=== PATIENT | female | born 1950 | race Caucasian/White ===

== ENCOUNTER 2017-09-19 13:59 | Emergency (ER) | payer MEDICARE, BC ==
[2017-09-19 14:09] VITALS: BP 116/76
--- NOTE | 2017-09-19 14:47 | XRAY Report ---
Procedure Date: 09/19/2017 Accession Number: [id number] / [id number] Procedure: XR - Ankle 3 View RT CPT Code: FULL RESULT: EXAM: RIGHT ANKLE RADIOGRAPHY EXAM DATE: 09/19/2017 02:28 PM. CLINICAL HISTORY: Right ankle pain post slip and fall. COMPARISON: None. TECHNIQUE: 3 views. FINDINGS: Bones: Comminuted mildly displaced distal fibular fracture with fracture lines extending to the level of the tibial plafond. Plantar calcaneal spur. Joints: Normal alignment. The ankle mortise is symmetric. No tibiotalar joint effusion. Soft Tissues: Anterolateral soft tissue swelling. IMPRESSION: Comminuted mildly displaced Nguyen type B distal fibular fracture. RADIA
--- NOTE | 2017-09-19 15:06 | ED Physician Documentation ---
PD HPI LOWER EXT INJURY - Stated complaint Stated Complaint: GLF/R ANKLE INJ - Chief complaint Chief Complaint: Ext Problem - History obtained from History obtained from: Patient, Family - History of Present Illness PD HPI LOW EXT INJURY LOCATION: Right, Lower leg Type of injury: Fall, Twist Where injury occurred: Home Timing - onset: Last night Timing - duration: Days (1) Timing - details: Abrupt onset, Still present Improved by: Rest, Ice, Immobilization Worsened by: Moving, Palpating Associated symptoms: Swelling. No: Weakness, Numbness Similar symptoms before: Has not had sx before Recently seen: Not recently seen - Additional information Additional information: 67-year-old female with a history of coronary artery disease and equilibrium problems was walking on her porch last night and slipped fell and heard a loud crack she has pain in her right leg just above the ankle on the calf and she was able to sleep last night with certain positioning and was not able to bear weight. This morning she is able to bear weight and walk a few steps. Review of Systems Constitutional: denies: Fever Eyes: denies: Decreased vision Nose: denies: Congestion Respiratory: denies: Cough GI: denies: Vomiting Skin: denies: Rash Musculoskeletal: reports: Joint pain, Joint swelling, Pain with weight bearing. denies: Neck pain, Back pain Neurologic: denies: Generalized weakness, Focal weakness, Numbness PD PAST MEDICAL HISTORY - Present Medications Home Medications: Ambulatory Orders Medication Instructions Recorded Confirmed Aspirin 81 mg PO 09/19/17 Atenolol/Chlorthalidone 1 each PO 09/19/17 [Atenolol-Chlorthal 50-25 Tb] Atorvastatin Calcium 09/19/17 FLUoxetine [PROzac] 40 mg PO DAILY 09/19/17 09/19/17 Levothyroxine Sodium [Synthroid] 100 mcg PO 09/19/17 Lisinopril 10 mg PO BID 09/19/17 09/19/17 Multivitamin [Multivitamins] 09/19/17 Omeprazole 20 mg PO 09/19/17 metFORMIN [Glucophage] 500 mg PO ONCE 09/19/17 09/19/17 - Allergies Allergies/Adverse Reactions: Allergies Allergy/AdvReac Type Severity Reaction Status Date / Time No Known Drug Allergies Allergy Verified 09/19/17 14:09 PD ED PE NORMAL - Vitals Vital signs reviewed: Yes (normal ) - General General: Alert and oriented X 3, No acute distress, Well developed/nourished - HEENT HEENT: Atraumatic, PERRL, EOMI - Neck Neck: Supple, no meningeal sign - Respiratory Respiratory: No respiratory distress - Derm Derm: Normal color, Warm and dry, No rash - Extremities Extremities: No deformity, No edema, Other (point tenderness to the right distal lateral calf and not deformity or swelling to the talofibular ligament or the anterior ankle. distal n/v is intact. ) - Neuro Eye Opening: Spontaneous Motor: Obeys Commands Verbal: Oriented GCS Score: 15 - Psych Psych: Normal mood, Normal affect Results - Vitals Vitals: Vital Signs - 24 hr 09/19/17 14:07 Temperature 36.5 C Heart Rate 55 L Respiratory 16 Rate Blood Pressure 116/76 O2 Saturation 97 Oxygen O2 Source Room air - Rads (name of study) right ankle Radiology: Prelim report reviewed (Impression: Comminuted mildly displaced Nguyen type B distal fibular fracture.), EMP read indepedently, See rad report PD MEDICAL DECISION MAKING - ED course Complexity details: reviewed results, re-evaluated patient, considered differential, d/w patient, d/w family ED course: 67-year-old female with a slip and fall on her deck has a spiral fracture of the distal fibula without lateral displacement of the talus. She is placed into a posterior splint and on crutches with follow-up with orthopedics. She is cautioned on the possibility of an unstable ankle and instructed not to bear weight until she is released by the orthopedic physicians. - Sepsis Event Vital Signs: Vital Signs - 24 hr 09/19/17 14:07 Temperature 36.5 C Heart Rate 55 L Respiratory 16 Rate Blood Pressure 116/76 O2 Saturation 97 Oxygen O2 Source Room air Departure - Departure Disposition: 01 Home, Self Care Clinical Impression: Fracture of distal fibula Qualifiers: Encounter type: initial encounter Fracture type: closed Fracture morphology: other fracture Laterality: right Qualified Code(s): S82.831A - Other fracture of upper and lower end of right fibula, initial encounter for closed fracture Condition: Stable Instructions: ED Fx Ankle Lateral Malleolus Follow-Up: Khushbu Henao PA [Primary Care Provider] - [facility] [Provider Group]
== END 2017-09-19 16:17 | disposition home or self-care (01) ==
LOC: ED 13:59
DX: S82.831A Other fracture of upper and lower end of right fibula, initial encounter for closed fracture (principal); W01.0XXA Fall on same level from slipping, tripping and stumbling without subsequent striking against object, initial encounter; Y93.01 Activity, walking, marching and hiking; Y92.008 Other place in unspecified non-institutional (private) residence as the place of occurrence of the external cause; Z79.82 Long term (current) use of aspirin
CPT/HCPCS: 29515; 99282; 99283

== ENCOUNTER 2017-09-21 07:32 | Day surgery (SDC) | payer MEDICARE, BC ==
[2017-09-21] MEDS ORDERED: LIDOCAINE-MPF 1% 30 ML VIAL ONE (07:34)
[2017-09-21] MEDS ORDERED: BUPIVACAINE 0.25%-EPI 1:200000 PF 30 ML VIAL ONE (07:34)
[2017-09-21] MEDS ORDERED: ceFAZolin 2 GM/50 ML 2 GM/50 ML BAG IV ONE (07:59)
[2017-09-21] MEDS ORDERED: DEXAMETHASONE 4 MG/ML VIAL ONE (08:19)
[2017-09-21] MEDS ORDERED: ROPIVACAINE 0.5% PF 20 ML AMPULE ONE (08:20)
[2017-09-21] MEDS ORDERED: LACTATED RINGERS 1,000 ML IV ONE ×2 (08:30→10:45)
[2017-09-21] MEDS ORDERED: fentaNYL 100 MCG/2 ML VIAL IVP ONE (10:27)
[2017-09-21] MEDS ORDERED: MIDAZOLAM 2 MG/2 ML VIAL IVP ONE (10:27)
[2017-09-21] MEDS ORDERED: PROPOFOL 200 MG/20 ML VIAL IVP ONE (10:27)
[2017-09-21] MEDS ORDERED: ONDANSETRON 4 MG/2 ML VIAL IVP ONE (10:27)
--- NOTE | 2017-09-21 12:00 | ANESTHESIA ---
Pre-Anesthesia VS, & Labs Vital Signs: Temp Pulse Resp BP Pulse Ox 36.5 C 16 129/72 100 09/21/17 11:48 09/21/17 11:48 09/21/17 11:48 09/21/17 11:48 Height 5 ft 2 in Weight (kg) 74 kg Body Mass Index 29.2 - NPO Other - Is Patient ?: No Home Medications and Allergies Home Medications: Ambulatory Orders Medication Instructions Recorded Confirmed Aspirin 81 mg PO DAILY 09/19/17 09/21/17 Atenolol/Chlorthalidone 1 each PO DAILY 09/19/17 09/21/17 [Atenolol-Chlorthal 50-25 Tb] Atorvastatin Calcium 80 mg PO DAILY 09/19/17 09/21/17 FLUoxetine [PROzac] 40 mg PO DAILY 09/19/17 09/21/17 Levothyroxine Sodium [Synthroid] 100 mcg PO DAILY 09/19/17 09/21/17 Lisinopril 10 mg PO BID 09/19/17 09/21/17 Multivitamin [Multivitamins] 1 tab PO DAILY 09/19/17 09/21/17 Allergies/Adverse Reactions: Allergies Allergy/AdvReac Type Severity Reaction Status Date / Time No Known Drug Allergies Allergy Verified 09/19/17 14:09 Anes History & Medical History - Anesthetic History Anesthesia Complications: reports: No previous complications Family history of Anesthesia Complications: Denies Family history of Malignant Hyperthermia: Denies - Airway/Dental Dental: Dentures full Upper, Dentures full Lower Neck Mobility: Normal Mallampati classification: II Thyromental Distance: 4-6 cm - Medical History Cardiovascular: reports: Hypertension, Coronary artery disease Pulmonary: reports: None Gastrointestinal: reports: GERD Urinary: reports: None Musculoskeletal: reports: Osteoarthritis, Chronic back pain Endocrine/Autoimmune: reports: HyPOthyroidism Smoking Status: Never smoker - Surgical History Cardiothoracic: Coronary stent Gynecologic: Dilation and currettage, Other Exam General: Alert, Oriented x3 Respiratory: Lungs clear, Normal breath sounds, No respiratory distress, No accessory muscle use Cardiovascular: Regular rate, Normal S1, Normal S2 Mental/Cognitive Status: Alert/Oriented X3, Normal for patient Cognitive Status: Within normal limits
--- NOTE | 2017-09-21 12:00 | XRAY Report ---
Procedure Date: 09/21/2017 Accession Number: [id number] / [id number] Procedure: XR - Ankle 3 View RT CPT Code: FULL RESULT: EXAM: Ankle 3 View RT DATE: 09/21/2017 11:39 AM CLINICAL HISTORY: post op COMPARISON: 09/19/2017. TECHNIQUE: 3 views. FINDINGS: Interval operative fixation of comminuted distal fibular fracture with a sideplate and 5 interlocking screws as well as a single syndesmotic screw without evidence of hardware failure. Evaluation of fine bone detail and soft tissues limited by the overlying cast material. No new fracture or dislocation is identified. IMPRESSION: Interval plate and screw fixation of the distal fibular fracture without evidence of failure. RADIA
--- NOTE | 2017-09-21 12:10 | ANESTHESIA ---
Pre-Anesthesia VS, & Labs Vital Signs: Temp Pulse Resp BP Pulse Ox 36.5 C 16 129/72 100 09/21/17 11:48 09/21/17 11:48 09/21/17 11:48 09/21/17 11:48 Height 5 ft 2 in Weight (kg) 74 kg Body Mass Index 29.2 Home Medications and Allergies Home Medications: Ambulatory Orders Medication Instructions Recorded Confirmed Aspirin 81 mg PO DAILY 09/19/17 09/21/17 Atenolol/Chlorthalidone 1 each PO DAILY 09/19/17 09/21/17 [Atenolol-Chlorthal 50-25 Tb] Atorvastatin Calcium 80 mg PO DAILY 09/19/17 09/21/17 FLUoxetine [PROzac] 40 mg PO DAILY 09/19/17 09/21/17 Levothyroxine Sodium [Synthroid] 100 mcg PO DAILY 09/19/17 09/21/17 Lisinopril 10 mg PO BID 09/19/17 09/21/17 Multivitamin [Multivitamins] 1 tab PO DAILY 09/19/17 09/21/17 Allergies/Adverse Reactions: Allergies Allergy/AdvReac Type Severity Reaction Status Date / Time No Known Drug Allergies Allergy Verified 09/19/17 14:09 Anes History & Medical History - Medical History Cardiovascular: reports: Hypertension, Coronary artery disease, Other Pulmonary: reports: None Gastrointestinal: reports: GERD Urinary: reports: None Musculoskeletal: reports: Osteoarthritis, Chronic back pain Endocrine/Autoimmune: reports: HyPOthyroidism Smoking Status: Never smoker - Surgical History Cardiothoracic: Coronary stent Gynecologic: Dilation and currettage, Other
[2017-09-21 12:17] VITALS: BP 115/72
--- NOTE | 2017-09-21 18:05 | OPERATIVE REPORT ---
DATE OF SERVICE: 09/21/2017 Physician: Ana Santiago MD PREOPERATIVE DIAGNOSIS: Right ankle comminuted lateral malleolus fracture with syndesmosis tear. POSTOPERATIVE DIAGNOSIS: Right ankle comminuted lateral malleolus fracture with syndesmosis tear. PROCEDURE PERFORMED: Right lateral malleolus open reduction internal fixation and placement of syndesmosis screw for syndesmosis repair. OPERATING SURGEON: Ana Santiago M.D. ANESTHESIA: General en bloc by Shai. INDICATIONS FOR SURGERY: Patient is a 67-year-old female who had misstepped off the back porch on 09/19/2017, presenting to the emergency room with a fractured unstable ankle, placed in a splint. On return to the office, the patient was noted to have severe comminution and shortening of her fibula and it was suspect that she may have syndesmosis disruption. Recommendation was that she undergo surgical repair. DESCRIPTION OF OPERATIVE PROCEDURE: Patient was taken to the operating room and placed supine. She had been given a popliteal block and then was given general anesthesia. A tourniquet was placed on her thigh. Her ankle and foot were sterilely prepped and draped in standard fashion. She was given IV antibiotics. After surgical timeout, the tourniquet was inflated to 300 mmHg. A longitudinal, 5-inch incision was made over the course of the lateral malleolus. This was carefully dissected down to bone. The patient's fracture was noted to be very comminuted representing about 5 fragments on initial exam. It was suspect that the syndesmosis was torn, but this was most apparent when reduction clamps were placed on the fragments and the syndesmosis was stressed. A Synthes recon locking plate was contoured and applied to the fibula, and this was a difficult reduction and difficult to hold all the fragments in acceptable position, but ultimately it was achieved with a combination of first placing standard screws in the fibula, followed by locking screws and then additionally adding a syndesmosis screw. This stabilized the ankle well and on small C-arm images appeared to show a very satisfactory reduction. The mortise was stable and the talus central in the mortise. The wound was irrigated thoroughly. The tourniquet was deflated. Bleeding was controlled, after which closure was undertaken with interrupted Vicryl closure of subcutaneous tissues and interrupted nylon closure of skin. Sterile dressings were applied. The patient was fitted into a well-molded stirrup splint that was well padded. The patient was taken to the recovery room in stable condition. ESTIMATED BLOOD LOSS: Minimal. COMPLICATIONS: None. SPONGE AND NEEDLE COUNTS: Correct. TD: 09/21/2017 13:11
== END 2017-09-21 07:33 | disposition home or self-care (01) ==
LOC: SDS 07:32
PROVIDERS: ATTEND Orthopaedic Surgery
PROC: 0QSJ04Z Reposition Right Fibula with Internal Fixation Device, Open Approach (ICD-10-PCS; principal; 2017-09-21 09:04)
DX: S82.61XA Displaced fracture of lateral malleolus of right fibula, initial encounter for closed fracture (principal); S93.431A Sprain of tibiofibular ligament of right ankle, initial encounter; I25.10 Atherosclerotic heart disease of native coronary artery without angina pectoris; I10 Essential (primary) hypertension; E03.9 Hypothyroidism, unspecified; Z87.891 Personal history of nicotine dependence
CPT/HCPCS: 27792; 73610; C1713; J0690; J7120